=== PATIENT | female | born 1955 | race African-American/Black ===

== ENCOUNTER 2019-11-18 20:25 | Emergency (ER) | payer MEDICARE, MEDICAID, SELFPAY ==
--- NOTE | ~2019-11-18 | XR_ITS ---
EXAMINATION: XR chest 2V 11/18/2019 22:18 INDICATION: Fever, cough and shortness of breath PROCEDURE: 2 view chest COMPARISON: Comparison to multiple prior studies sequentially, with oldest reviewed study dated 05/2013. FINDINGS: The lungs are clear. The cardiomediastinal silhouette is within normal limits. There are no pleural effusions. There is no pneumothorax suspected. IMPRESSION: 1: NO ACUTE CARDIOPULMONARY DISEASE. Reviewed, dictated and finalized at location A.
--- NOTE | ~2019-11-18 | CT_ITS ---
EXAMINATION: CT abdomen pelvis w con DATE: 11/18/2019 23:20 INDICATION: Fever. Lower abdominal pain. TECHNIQUE: Computed tomography (CT) of the abdomen and pelvis was performed with 100 cc Omnipaque 350 intravenous contrast. The dose-length product was 1310.29 mGy-cm. Automated exposure control and ite rative reconstruction technique were employed. COMPARISON: CT dated 07/23/2016 FINDINGS: Lung bases are unremarkable. Borderline heart size. No significant pleural or pericardial e ffusion. The liver, spleen, pancreas, adrenal glands are unremarkable. There are bilateral renal cysts. Gallbl adder is present. There is mild prominence of the common bile duct, likely related to patient's age. Nonobstructive bowel gas pattern. No free air or free fluid. Normal appendix. Small hiatal hernia. No hydronephrosis. Status post hysterectomy. No significant vascular abnormality. No lymphadenopathy. Small fat-containing umbilical hernia. Mild lumbar spondylosis. IMPRESSION: 1. No acute abdominal abnormality. Reviewed, dictated and finalized at location A.
[2019-11-18 20:27] VITALS: BP 153/100; PULSE 90; RESP 18; TEMP 38.4; O2SAT 98
--- NOTE | 2019-11-18 22:00 | ED.FEVER ---
HPI - Fever General Chief Complaint: Fever Stated Complaint: fever Time Seen by Provider: 11/18/19 21:42 Source: patient and RN notes reviewed Mode of arrival: ambulatory Limitations: no limitations History of Present Illness HPI Narrative: A 64 y/o female presents to the ED with a fever beginning last night. She states that she was in [place] to visit her mother and returned today. She reports that was in [place] she developed a fever, decreased appetite, lower ABD pain, and a LYNCH. She notes that when she returned today that she developed some dysuria. She also notes that her kid had the flu 2 weeks ago and that she has chronic SOB with exertion. She denies any cough, CP, nasal discharge, N/V/D, or body aches. MD elicited complaint: fever Onset (ago): day(s) (last night) Context: sick contacts and recent travel Associated symptoms: headache, shortness of breath (chronic with exertion), abdominal pain (lower), dysuria and other (decreased appetite) Related Data Allergies Allergy/AdvReac Type Severity Reaction Status Date / Time amoxicillin Allergy Unknown Verified 08/23/18 09:52 azithromycin Allergy Unknown Verified 04/29/17 08:04 tioconazole Allergy Unknown Verified 04/29/17 08:04 zolpidem Allergy Unknown Verified 10/31/18 08:12 Review of Systems Review of Systems: All systems reviewed & are unremarkable except as noted in HPI and below Constitutional: Constitutional: Denies body ache(s), Reports fever(s) and Reports poor appetite ENT: Denies nasal discharge Cardiovascular: Cardiovascular: Denies chest pain Respiratory: Respiratory: Denies cough and Reports dyspnea (chronic with exertion) Gastrointestinal: Gastrointestinal: Reports abdominal pain (lower), Denies diarrhea, Denies nausea and Denies vomiting Genitourinary: Genitourinary: Reports dysuria Neurologic: Reports headache(s) [facility] Past Medical History Medical History (Updated 11/19/19 @ 00:30 by Naz Daley MD) Arthritis Asthma Depression GERD (gastroesophageal reflux disease) H/O: HTN (hypertension) History of pneumonia Hx: UTI (urinary tract infection) Hypercholesteremia Shingles Surgical History Surgical History (Updated 11/18/19 @ 22:16 by Herman Pennington) History of hysterectomy History of orthopedic surgery History of tonsillectomy Hx of tubal ligation Social History Social History (Updated 11/18/19 @ 22:11 by Herman Pennington) Smoking packs per day: 1 Smoking cigarettes per day: 20.0 Smoking status: Current every day smoker Tobacco type: cigarettes Alcohol intake: never Gender identity (if verbalized by the patient): Female Exam Const: General: cooperative, no acute distress and alert Nutritional Appearance: well nourished Orientation/consciousness: patient oriented x3 Limitations: no limitations HENMT: Mouth: Yes lip normal and Yes dry mucous membranes (slightly) Resp: Effort & Inspection: normal respiratory effort Auscultation: clear to auscultation bilaterally Cardio: Rate: regular rate Rhythm: regular rhythm GI: GI Palp: Yes Soft to palpation and Yes Tenderness to palpation present (GI) (diffuse lower) Auscultation: normal bowel sounds Back/Spine/Pelvis: Back: CVA tenderness (YASMEEN) Skin: General skin exam: normal color Neuro: General: patient oriented x3 Cognition (Neuro): normal cognition Speech: normal speech Extrem: General: normal to inspection, full ROM and no clubbing, cyanosis or edema Psych: Mental Status: mental status grossly normal Affect: normal affect Attitude: cooperative Course Course Emergency Course: Patient with fever, but no overt abnormalities noted on testing. Suspect viral syndrome. Patient without any significant respiratory symptomatology. Will discharge home with instructions symptomatic management. Urine culture pending for minimal pyuria with large amount of squamous cells noted. Patient advised to follow-up results of urine culture with primary care pro
[2019-11-18 22:24] LABS: Add Urine Microscopic? YES; Appearance Urine Cloudy (Clear); Bacteria Urine Trace /hpf; Bilirubin Urine Negative (Negative); Blood Urine 3+ (Negative); Color Urine Yellow (Yellow); Glucose Urine UA Negative (Negative); Ketones Urine Negative (Negative); Leukocyte Esterase Ur Trace LEU/UL (Negative); Mucus Urine Rare /lpf; Nitrate Urine Negative (Negative); Protein Urine 2+ mg/dL (Negative); RBC Urine 21-50 /hpf (0-2); Specific Grav Ur 1.023 (1.001-1.035); Squamous Epithelial Cell Urine Many /hpf (Few)
[2019-11-18 22:52] LABS: Basophils Absolute Auto 0.1 K/mm3 (0.0-0.1); Basophils Percent Auto 0.6 % (0.2-1.2); Eosinophils Percent Auto 0.1 % (0-4.4); Hematocrit 40.9 % (37.0-47.0); Hemoglobin 13.6 g/dL (12.0-15.0); Immature Granulocyte Absolute 0.05 K/mm3 (0.00-0.031); Immature Granulocyte Percent A 0.4 % (0-0.5); Lymphocytes Absolute Auto 2.89 K/mm3 (0.9-3.2); Lymphocytes Percent Auto 25.8 % (18.3-44.2); Mean Corpuscular HGB Conc 33.3 g/dl (32-36); Mean Corpuscular Hemoglobin 31.7 pg (26-34); Mean Corpuscular Volume 95.3 fl (80-100); Mean Platelet Volume 9.6 fl (7.4-10.4); Monocytes Absolute Auto 0.7 K/mm3 (0.1-0.6); Monocytes Percent Auto 5.8 % (2.6-8.5); Neutrophils Absolute Auto 7.5 K/mm3 (1.3-6.7); Neutrophils Percent Auto 67.3 % (45.5-73.1); Platelet Count Result 273 k/mm3 (150-375); Red Blood Count 4.29 M/mm3 (4.2-5.4); Red Cell Distribution Width 13.4 % (11.5-14.5); White Blood Count 11.2 K/mm3 (4.5-10.0)
[2019-11-18 23:03] LABS: Lactic Acid Reflex 0.7 mmol/L (0.7-2.1)
[2019-11-18 23:04] LABS: Alanine Aminotransferase 14 U/L (4-35); Albumin Level 4.2 g/dL (3.5-5.1); Alkaline Phosphatase 117 U/L (38-126); Aspartate Amino Transferase 25 U/L (14-36); Bilirubin,Total 0.4 mg/dL (0.2-1.3); Blood Urea Nitrogen 18 mg/dL (7-17); Calcium 8.9 mg/dL (8.4-10.2); Carbon Dioxide 26 mmol/L (22-30); Chloride 102 mmol/L (98-107); Estimated Glomerular Filt Rate > 60; Glucose 95 mg/dL (65-105); Potassium 3.8 mmol/L (3.4-5.0); Sodium 135 mmol/L (137-145)
[2019-11-18 23:36] VITALS: BP 148/92; PULSE 79; RESP 18; O2SAT 98
[2019-11-18 23:44] VITALS: BP 120/64; PULSE 77; RESP 18; O2SAT 100
[2019-11-19 00:47] VITALS: BP 142/77; PULSE 78; RESP 18; O2SAT 98
== END 2019-11-19 00:48 | disposition home or self-care (01) ==
PROVIDERS: Emergency Provider Emergency Medicine
DX: R50.9 Fever, unspecified (principal); M19.90 Unspecified osteoarthritis, unspecified site; J45.909 Unspecified asthma, uncomplicated; K21.9 Gastro-esophageal reflux disease without esophagitis; I10 Essential (primary) hypertension; E78.00 Pure hypercholesterolemia, unspecified; Z87.440 Personal history of urinary (tract) infections; F17.210 Nicotine dependence, cigarettes, uncomplicated
CPT/HCPCS: 36415; 71046; 74177; 80053; 81001; 83605; 85025; 87040; 87086; 87088; 87804; 99284; Q9967

== ENCOUNTER 2019-11-22 17:22 | Emergency (ER) | payer MEDICARE, MEDICAID, SELFPAY ==
[2019-11-22 17:33] VITALS: BP 133/67; PULSE 71; RESP 16; TEMP 36.9; O2SAT 99
[2019-11-22 18:11] LABS: Add Urine Microscopic? YES; Appearance Urine Cloudy (Clear); Bacteria Urine 1+ /hpf; Bilirubin Urine Negative (Negative); Blood Urine 3+ (Negative); Color Urine Yellow (Yellow); Glucose Urine UA Negative (Negative); Ketones Urine Negative (Negative); Leukocyte Esterase Ur 2+ LEU/UL (Negative); Mucus Urine Rare /lpf; Nitrate Urine Negative (Negative); Protein Urine Negative (Negative); Specific Grav Ur 1.009 (1.001-1.035); Squamous Epithelial Cell Urine Many /hpf (Few); Urobilinogen Urine Negative mg/dL (<2.0)
--- NOTE | 2019-11-22 18:13 | ED.FEVER ---
HPI - Fever General Chief Complaint: Fever Stated Complaint: fever Time Seen by Provider: 11/22/19 18:13 Source: patient and family (Son) Mode of arrival: ambulatory Limitations: no limitations History of Present Illness HPI Narrative: The pt is a 64 y/o female who presents to the ED c/o fever onset 5 days ago. Pt's son states that the pt's fever started while she was in [place]. Pt states that she came to this ED four days ago and had lab work done. She notes that she usually gets antibiotics when she has blood in her urine, but states that she did not receive these at that time. Pt's son states that the pt has been taking Ibuprofen and Tylenol with relief, but not taking them means her fever will return. Pt denies N/V, cough, and rhinorrhea. MD elicited complaint: fever Onset (ago): day(s) (5) Context: recent travel ([place]) Relieving factors: acetaminophen and ibuprofen Associated symptoms: denies other symptoms Treatments prior to arrival fever: acetaminophen and ibuprofen Related Data Allergies Allergy/AdvReac Type Severity Reaction Status Date / Time amoxicillin Allergy Unknown Verified 08/23/18 09:52 azithromycin Allergy Unknown Verified 04/29/17 08:04 tioconazole Allergy Unknown Verified 04/29/17 08:04 zolpidem Allergy Unknown Verified 10/31/18 08:12 Review of Systems Review of Systems: All systems reviewed & are unremarkable except as noted in HPI and below Constitutional: Constitutional: Reports fever(s) ENT: Denies other (Rhinorrhea) Respiratory: Respiratory: Denies cough Gastrointestinal: Gastrointestinal: Denies nausea and Denies vomiting PMF Past Medical History Medical History (Updated 11/22/19 @ 18:26 by Ingrid Burns MD) Arthritis Asthma Depression GERD (gastroesophageal reflux disease) H/O: HTN (hypertension) History of pneumonia Hx: UTI (urinary tract infection) Hypercholesteremia Shingles Surgical History Surgical History (Updated 11/18/19 @ 22:16 by Herman Pennington) History of hysterectomy History of orthopedic surgery History of tonsillectomy Hx of tubal ligation Social History Social History (Updated 11/18/19 @ 22:11 by Herman Pennington) Smoking packs per day: 1 Smoking cigarettes per day: 20.0 Smoking status: Current every day smoker Tobacco type: cigarettes Alcohol intake: never Gender identity (if verbalized by the patient): Female Exam Narrative: Exam Narrative: General appearance: Well-developed, well-nourished Skin: Normal color Head: Normocephalic, nontraumatic Eyes: Clear conjunctiva ENT: Oropharynx normal, ears normal, nose normal Neck: Supple, nontender Chest and respiratory: Airway patent, no respiratory distress, no accessory muscle use Heart: Regular rate/rhythm Abdomen: Soft, nontender, no organomegaly, quiet bowel sounds Vascular: Normal peripheral pulses, normal capillary refill. Musculoskeletal: Normal range of motion, nontender back Neurologic: Alert and oriented ?3, [employer] CON[employer] is normal as tested, no gross motor deficit Course [place] Physician Supervision Stable Vital Signs Vital signs: Vital Signs Temperature 36.9 C 11/22/19 17:33 Pulse Rate 71 11/22/19 17:33 Respiratory Rate 16 11/22/19 17:33 Blood Pressure 133/67 11/22/19 17:33 Pulse Oximetry 99 11/22/19 17:33 Temperature 36.9 C 11/22/19 17:33 Pulse Rate 71 11/22/19 17:33 Respiratory Rate 16 11/22/19 17:33 Blood Pressure 133/67 11/22/19 17:33 Pulse Oximetry 99 11/22/19 17:33 MDM - Fever MDM Narrative Medical decision making narrative: Urinary tract infection is my concern. UA ordered. Further plan to follow Differential Diagnosis Differential diagnosis:
== END 2019-11-22 18:40 | disposition home or self-care (01) ==
PROVIDERS: Emergency Provider Emergency Medicine
DX: N30.01 Acute cystitis with hematuria (principal); M19.90 Unspecified osteoarthritis, unspecified site; J45.909 Unspecified asthma, uncomplicated; K21.9 Gastro-esophageal reflux disease without esophagitis; Z87.440 Personal history of urinary (tract) infections; E78.00 Pure hypercholesterolemia, unspecified; F17.210 Nicotine dependence, cigarettes, uncomplicated
CPT/HCPCS: 81001; 87086; 99283